=== PATIENT | male | born 1965 | race Caucasian/White ===

== ENCOUNTER 2018-06-11 06:35 | Inpatient (IN) | payer BC, OTHER ==
[~2018-06-11] VITALS: Ht 182.9 cm; Wt 73.9 kg
[~2018-06-11 06:35] MED LIST: AZAT50TA18 PO; BUDE3CAP8 PO; MESA400T14 PO; METR500T PO; OMEP40CA33 PO
[2018-06-11 06:50] VITALS: BP_SYST 118
[2018-06-11] MEDS ORDERED: fentaNYL CITRATE/PF 100 MCG/2 ML AMP IVP ONE (07:45)
[2018-06-11 08:23] LABS: BASOPHILS % (AUTO) 0.2 % (0.0-2.0); EOSINOPHILS % (AUTO) 0.4 % (0.0-4.0); HEMATOCRIT 39.3 % (36-54); HEMOGLOBIN 13.2 g/dL (14.0-18.0); LYMPHOCYTES # (AUTO) 0.6 K/uL (1.0-5.5); LYMPHOCYTES % (AUTO) 5.5 % (20.5-51.5); MEAN CORPUSCULAR HEMOGLOBIN 30 pg (27-31); MEAN CORPUSCULAR HGB CONC 34 % (32-36); MEAN CORPUSCULAR VOLUME 90 fL (79.0-98.0); MONOCYTES # (AUTO) 0.7 K/uL (0.0-1.0); MONOCYTES % (AUTO) 5.7 % (1.7-9.3); NEUTROPHILS # (AUTO) 10.4 K/uL (1.8-7.7); NEUTROPHILS % (AUTO) 88.2 % (40.0-70.0); PLATELET COUNT (AUTO) 332 K/uL (130-430); RED BLOOD CELL COUNT(AUTO) 4.38 MIL/uL (4.2-6.2); RED CELL DISTRIBUTION WIDTH 20.3 % (9.0-15.0); WHITE BLOOD COUNT (AUTO) 11.7 K/uL (4.8-10.8)
[2018-06-11 08:31] LABS: CALCIUM 9.1 mg/dL (8.4-11.0); CREATININE 0.99 mg/dL (0.55-1.30); POTASSIUM 4.2 mmol/L (3.5-5.1)
[2018-06-11 08:32] LABS: BILIRUBIN,URINE NEGATIVE (NEGATIVE); BLOOD, URINE NEGATIVE (NEGATIVE); CLARITY/URINE CLEAR (CLEAR); COLOR,URINE YELLOW (YELLOW); GLUCOSE,URINE NEGATIVE (NEGATIVE); KETONES,URINE NEGATIVE (NEGATIVE); LEUKOCYTE ESTERASE ,URINE NEGATIVE (NEGATIVE); NITRITE, URINE NEGATIVE (NEGATIVE); PH,URINE 5.5 (5.0-8.0); PROTEIN URINE NEGATIVE (NEGATIVE); UROBILINOGEN,URINE 0.2 (0.2-1.0)
[2018-06-11 08:37] LABS: ALBUMIN 2.9 g/dL (3.4-4.8); TOTAL BILIRUBIN 0.4 mg/dL (0.0-1.0)
[2018-06-11] MEDS ORDERED: PIPERACILLIN/TAZO 3.375 GM in NS 50 ML IV ONE (10:30)
[2018-06-11] MEDS ORDERED: metroNIDAZOLE 500 mg/NS 100 ML IV ONE (10:30)
[2018-06-11] MEDS ORDERED: PIPERACILLIN/TAZOBACTAM 3.375 GM/VIAL (ZOSYN) IV ONE (10:49)
[2018-06-11] MEDS ORDERED: ONDANSETRON HCL 4 MG/2 ML VIAL IVP PRN (11:45)
[2018-06-11] MEDS ORDERED: MORPHINE 2 MG/ML INJ. SYRINGE IVP PRN (11:45)
[2018-06-11] MEDS ORDERED: LORazepam 2 MG/ML VIAL IVP PRN (11:45)
[2018-06-11 11:52] VITALS: BP_SYST 107
[2018-06-11 12:00] VITALS: BP_SYST 126
[2018-06-11] MEDS ORDERED: PRED20TA PO (12:04)
[2018-06-11] MEDS: D5/0.45 NS 1,000 ML IV SCH ×2 (12:39→19:44)
[2018-06-11] MEDS ORDERED: DIATR MEGLU/DIATRIZ SOD 30 ML SOLUTION PO ONE (14:39)
[2018-06-11 16:14] VITALS: BP_SYST 100
[2018-06-11] MEDS ORDERED: IOHEXOL 100 ML IV ONE (17:07)
[2018-06-11] MEDS: MORPHINE 4 MG/ML INJ. SYRINGE IVP PRN ×2 (17:53→22:33)
[2018-06-11 19:40] VITALS: BP_SYST 102
[2018-06-11] MEDS: metroNIDAZOLE 500 mg/NS 100 ML IV SCH (22:02)
[2018-06-11] MEDS: CIPROFLOXACIN LACT 400 MG/D5W 200 ML IV SCH (22:02)
[2018-06-12 00:03] VITALS: BP_SYST 103
[2018-06-12] MEDS: MORPHINE 4 MG/ML INJ. SYRINGE IVP PRN (06:30)
[2018-06-12] MEDS: metroNIDAZOLE 500 mg/NS 100 ML IV SCH ×2 (06:30→13:58)
[2018-06-12] MEDS: D5/0.45 NS 1,000 ML IV SCH ×2 (06:40→16:40)
[2018-06-12 07:04] LABS: HEMATOCRIT 34.1 % (36-54); HEMOGLOBIN 12.1 g/dL (14.0-18.0); MEAN CORPUSCULAR HEMOGLOBIN 32 pg (27-31); MEAN CORPUSCULAR VOLUME 90 fL (79.0-98.0); RED BLOOD CELL COUNT(AUTO) 3.81 MIL/uL (4.2-6.2); WHITE BLOOD COUNT (AUTO) 8.9 K/uL (4.8-10.8)
[2018-06-12 07:05] LABS: BASOPHILS % (AUTO) 0.5 % (0.0-2.0); EOSINOPHILS # (AUTO) 0.1 K/uL (0.0-0.4); EOSINOPHILS % (AUTO) 0.7 % (0.0-4.0); LYMPHOCYTES # (AUTO) 1.7 K/uL (1.0-5.5); LYMPHOCYTES % (AUTO) 19.5 % (20.5-51.5); MEAN CORPUSCULAR HGB CONC 36 % (32-36); MONOCYTES # (AUTO) 0.6 K/uL (0.0-1.0); MONOCYTES % (AUTO) 6.9 % (1.7-9.3); NEUTROPHILS # (AUTO) 6.5 K/uL (1.8-7.7); NEUTROPHILS % (AUTO) 72.4 % (40.0-70.0); PLATELET COUNT (AUTO) 303 K/uL (130-430)
[2018-06-12 07:24] LABS: CALCIUM 8.8 mg/dL (8.4-11.0); CREATININE 0.88 mg/dL (0.55-1.30); POTASSIUM 3.3 mmol/L (3.5-5.1)
[2018-06-12 08:00] VITALS: BP_SYST 98
[2018-06-12] MEDS: CIPROFLOXACIN LACT 400 MG/D5W 200 ML IV SCH (08:48)
[2018-06-12 12:51] VITALS: BP_SYST 104
[2018-06-12 16:00] VITALS: BP_SYST 108
[2018-06-12] MEDS ORDERED: METR500T PO (17:34)
[2018-06-12] MEDS ORDERED: CIPR-211 PO (17:34)
[2018-06-12 17:39] VITALS: BP_SYST 135
== END 2018-06-12 17:55 | disposition home or self-care (01) | DRG 386 ==
LOC: SED 06:35 → SMU 10:40
PROVIDERS: ADMIT Preventive Medicine Preventive Medicine/Occupational Environmental Medicine; ATTEND Preventive Medicine Preventive Medicine/Occupational Environmental Medicine
DX: K50.913 Crohn's disease, unspecified, with fistula (principal); E87.1 Hypo-osmolality and hyponatremia; K80.20 Calculus of gallbladder without cholecystitis without obstruction; E78.5 Hyperlipidemia, unspecified; D72.829 Elevated white blood cell count, unspecified; Z88.8 Allergy status to other drugs, medicaments and biological substances; Z79.899 Other long term (current) drug therapy
CPT/HCPCS: 36415; 76700-TC; 80048; 80053; 81003; 83605; 83690-TC; 85025; 87040-TC; 87081; 96365; 96368; 96375; 99285; J0744; J2270; J2543; J3010; J3490; Q9964; Q9967